=== PATIENT | male | born 1975 | race Caucasian/White ===

== ENCOUNTER → 2018-09-03 | Outpatient (CLI) | payer BC, OTHER ==
[2018-09-03 08:35] LABS: HEMATOCRIT 47.2 % (42.0-52.0); MCH 30.9 pg (26.0-34.0); MCHC 33.9 g/dL (28.0-37.0); MCV 91.2 fL (80.0-100.0); RBC 5.18 mil/uL (4.50-6.00); RDW 12.5 % (10.5-14.5); WBC 5.5 thou/uL (4.0-11.0)
[2018-09-03 08:51] LABS: ALBUMIN 4.2 g/dL (3.4-5.0); CALCIUM 9.2 mg/dL (8.5-10.1); POTASSIUM 4.3 mmol/L (3.5-5.1); TOTAL BILIRUBIN 0.5 mg/dL (<0.1-1.0); TOTAL PROTEIN 7.4 g/dL (6.4-8.2)
== END ==
LOC: CAT 08:03 → LABMALL 08:03
PROVIDERS: Internal Medicine Cardiovascular Disease
DX: I48.91 Unspecified atrial fibrillation (principal)

== ENCOUNTER → 2019-10-01 | Outpatient (CLI) | payer BC, OTHER ==
[~2019-10-01] MED LIST: ASPIR 8181 MG PO; CLONAZEPAM 0.50.5 M1 PO; LAMICTAL150 MG PO; PRADAXA150 MG PO; SEROQUEL 25 MG25 M1 PO
== END ==
LOC: SJCVCIMAG 07:12
DX: R00.2 Palpitations (principal); I48.0 Paroxysmal atrial fibrillation

== ENCOUNTER → 2020-04-05 | Outpatient (CLI) | payer BC, OTHER ==
[2020-04-05 07:50] VITALS: BP 136/85
--- NOTE | 2020-04-08 10:42 | P ---
[facility] [place] [address] PROCEDURE REPORT Name: HUNG HUANG Room #: [facility] CENTERGracia.#: [id number] Admission: 04/05/20 Attend Phys: Ned Weems MD Discharge: Date of : 75 Report #: [id number] THIS REPORT FOR: cc: Quinn Sullivan MD,Quinn Weems,Ned Cha MD ~ PREOPERATIVE DIAGNOSES: 1. Atrial fibrillation. 2. Palpitations. PROCEDURE: Implantable loop recorder insertion. DESCRIPTION OF PROCEDURE: The patient underwent informed consent. He was prepped and draped in a standard sterile fashion. I injected lidocaine at the incision site. Incision was made. Device was injected under the skin. Sensing was within normal limits. A single 3-0 suture was performed and surgical glue was placed at the skin layer and a dressing was placed. There were no procedure-related complications. Implanted device was [employer] LINQ, serial #[id number]. CONCLUSIONS: Successful implantation of an implantable loop recorder. <ELECTRONICALLY SIGNED> By: Ned Weems MD 04/08/20 [id number] Ned Weems MD /nt
== END | disposition home or self-care (01) ==
LOC: CATH 07:19
PROVIDERS: ATTEND Internal Medicine Cardiovascular Disease
DX: I48.91 Unspecified atrial fibrillation (principal); R00.2 Palpitations; Z98.890 Other specified postprocedural states; Z79.899 Other long term (current) drug therapy; Z79.82 Long term (current) use of aspirin; Z79.01 Long term (current) use of anticoagulants